=== PATIENT | female | born 2000 | race Caucasian/White ===

== ENCOUNTER 2019-01-12 05:38 | Emergency (ER) | payer OTHER ==
--- NOTE | 2019-01-12 05:56 | PDOC ---
Attending Attestation - Resident Resident Name: Justin Finnegan - ED Attending Attestation I have performed the following: The case was reviewed & discussed with the resident, I agree w/resident's findings & plan - HPI HPI: 01/12/19 20:25 see resident hpi - Physicial Exam PE: 01/12/19 20:25 see resident exam - Medical Decision Making 01/12/19 20:27 18 yo with cough and sore throat rapid strep negative nebulizer given in ed for possible reactive airway due to uri pt well appearing 01/12/19 20:28
--- NOTE | 2019-01-12 05:59 | PDOC ---
History of Present Illness - General Chief Complaint: Cold Symptoms Stated Complaint: CHEST DISCOMFORT Time Seen by Provider: 01/12/19 05:50 History Source: Patient Exam Limitations: No Limitations - History of Present Illness Initial Comments: Aliyah Morales is a 18 yo F w a hx of childhood asthma who presents to the [facility] er with a sore throat for the past 2 days associated with a cough. The patient states she also had one episode of nausea and NBNB vomitus earlier today after she brushed her teeth. Patient states her cough is a dry cough and not associated with sputum production. She states she also had some mild shortness of breath earlier today which has mainly resolved here in the ER. LMP: 12/20 Plant Controller: None PSH: breast cyst removal Social Hx: Denies smoking, drinking, or other substance usage. Allergies: NKA, NKDA Past History - Past Medical History Allergies/Adverse Reactions: Allergies Allergy/AdvReac Type Severity Reaction Status Date / Time No Known Allergies Allergy Verified 01/12/19 06:12 Home Medications: Ambulatory Orders NK [No Known Home Medication] 01/12/19 - Psycho Social/Smoking Cessation Hx Smoking History: Never smoked Hx Alcohol Use: No Substance Use Type: None Review of Systems - Review of Systems Able to Perform ROS?: Yes Comments:: CONSTITUTIONAL: Present: Chills Absent: fever, no fatigue EYES: Absent: visual changes ENT: Present: Sore throat Absent: ear pain CARDIOVASCULAR: Absent: chest pain, no palpitations RESPIRATORY: Present: Cough, SOB GI: Present: Nausea, vomiting Absent: abdominal pain, no constipation, no diarrhea GENITOURINARY: Absent: dysuria, no frequency, no hematuria MUSKULOSKELETAL: Absent: back pain, no arthralgia, no myalgia SKIN: Absent: rash NEURO: Absent: headache *Physical Exam - Physical Exam Comments: GENERAL: Well-appearing, well-nourished. No apparent distress. HEENT: Normocephalic, atraumatic. PERRL, EOM intact. CARDIOVASCULAR: Normal S1, S2. Regular rate and rhythm. PULMONARY: No evidence of respiratory distress. Lungs clear to auscultation bilaterally. No wheezing, rales or rhonchi. ABDOMEN: Soft, non-distended, non-tender. EXTREMITIES: Normal ROM in all four extremities. No gross deformities. SKIN: Warm, dry. No rash NEUROLOGICAL: No focal neurological deficits. Medical Decision Making - Medical Decision Making Medical Decision Making: Aliyah Morales is a 18 yo F w a hx of childhood asthma who presents to the [facility] er with a sore throat for the past 2 days associated with a cough. The patient states she also had one episode of nausea and NBNB vomitus earlier today after she brushed her teeth. Patient states her cough is a dry cough and not associated with sputum production. She states she also had some mild shortness of breath earlier today which has mainly resolved here in the ER. LMP: 12/20 VS: WNL DDx IBNLT: URI, strep, asthma Plan: HCG, rapid strep, analgesia and supportive care, DC HCG: Negative Strep: Negative Dispo: Home *DC/Admit/Observation/Transfer Diagnosis at time of Disposition: Cough, Sore throat - Discharge Dispostion Disposition: HOME Condition at time of disposition: Improved Decision to Admit order: No - Referrals Referrals: [facility] [Provider Group] - Patient Instructions Printed Discharge Instructions: How to Avoid a Cold or Flu, DI for Viral Upper Respiratory Infection-Child, DI for Common Cold Additional Instructions: You came into the ER with a cough and a sore throat. We believe you have a viral infection. Take motrin/tylenol as needed for comfort. Please make sure to schedule a follow up appointment with the doctor we are referring you to in the next 3 to 5 days. Come back to the ER immediately if your pain worsens or you have any other new or worsening concerns. Thank you for coming to the [facility] ER. We hope you feel better soon! Print Language: MOROCCAN - Post Discharge Activity Forms/Work/School Notes: Back to Work Discharge - Discharge Information Problems reviewed: Yes Clinical Impression/Diagnosis: Cough, Sore throat Condition: Improved Disposition: HOME - Follow up/Referral Referrals: [facility] [Provider Group] - Patient Discharge Instructions Patient Printed Discharge Instructions: How to Avoid a Cold or Flu, DI for Viral Upper Respiratory Infection-Child, DI for Common Cold Additional Instructions: You came into the ER with a cough and a sore throat. We believe you have a viral infection. Take motrin/tylenol as needed for comfort. Please make sure to schedule a follow up appointment with the doctor we are referring you to in the next 3 to 5 days. Come back to the ER immediately if your pain worsens or you have any other new or worsening concerns. Thank you for coming to the [facility] ER. We hope you feel better soon! Print Language: MOROCCAN - Post Discharge Activity Work/Back to School Note: Back to Work
[2019-01-12] MEDS ORDERED: ACETAMINOPHEN 325 MG TABLET (FP) PO ONE (06:00)
[2019-01-12] MEDS ORDERED: ALBUTEROL SO4 2.5/IPRATROPIUM 0.5 INH SOL 3 ML VIAL.NEB. NEB ONE ×2 (06:00→06:06)
[2019-01-12] MEDS ORDERED: ACETAMINOPHEN 325 MG TABLET (FP) ONE (06:06)
[2019-01-12] MEDS ORDERED: DEXAMETHASONE 0.5 MG TABLET PO ONE (06:06)
[2019-01-12] MEDS ORDERED: guaiFENesin/CODEINE 10 ML UNIT-DOSE CUPS PO ONE (06:08)
[2019-01-12] MEDS ORDERED: ONDANSETRON *ODT* 4 MG TABLET SL ONE (06:10)
[2019-01-12 06:12] VITALS: BP 126/67; PULSE 92; TEMP 98.7; BMI 29.9
[2019-01-12] MEDS ORDERED: ONDANSETRON *ODT* 4 MG TABLET ONE (06:21)
[2019-01-12] MEDS ORDERED: guaiFENesin/CODEINE 5 ML UNIT-DOSE CUPS PO ONE (06:28)
== END 2019-01-12 07:03 | disposition home or self-care (01) ==
LOC: JER 05:38
PROC: 3E0F7GC Introduction of Other Therapeutic Substance into Respiratory Tract, Via Natural or Artificial Opening (ICD-10-PCS; principal; 2019-01-12)
DX: J06.9 Acute upper respiratory infection, unspecified (principal)
CPT/HCPCS: 84703; 87070; 87077; 87880; 99281-25; J8540; Q0162

== ENCOUNTER 2019-06-20 05:03 | Emergency (ER) | payer OTHER ==
--- NOTE | 2019-06-20 05:05 | PDOC ---
History of Present Illness - General Stated Complaint: ABD PAIN 3 MONTH Time Seen by Provider: 06/20/19 05:05 Past History - Past Medical History Allergies/Adverse Reactions: Allergies Allergy/AdvReac Type Severity Reaction Status Date / Time No Known Allergies Allergy Verified 01/12/19 06:12 Home Medications: Ambulatory Orders NK [No Known Home Medication] 01/12/19 - Psycho Social/Smoking Cessation Hx Smoking History: Never smoked Hx Alcohol Use: No Drug/Substance Use Hx: No Substance Use Type: None
[2019-06-20 05:22] VITALS: BMI 28.3
--- NOTE | 2019-06-20 05:34 | PDOC ---
Attending Attestation - Resident Resident Name: Iraida Ross - ED Attending Attestation I have performed the following: I have examined & evaluated the patient, The case was reviewed & discussed with the resident, I agree w/resident's findings & plan - HPI HPI: 06/20/19 06:34 18-year-old female with past medical history of gonorrhea infection (x2 weeks ago, treated) presented to the emergency department for nausea since Thursday. Patient reported that since not Thursday she feels that her nausea has been much more intense than her usual nausea from her . She reported she did not eat all day Thursday, and then began having vomiting episodes. She reported after Thursday she has not had an episode of vomiting, but that she feels that her nausea is much more intense. She reported that earlier today she felt a sharp pain to her RLQ, intermittent, not present at the moment. She reported the pain to her epigastrium is worse than her pain in the R - Physicial Exam PE: 06/20/19 06:59 Exam is normal no CMT; pt has yeast in the vault; she has no discharge and no dysuria Pt has no abd pain and no flank pain and no fever Normal heart and lungs. - Medical Decision Making 06/24/19 22:34 Pt will be signed out to the day team; they will follow results and dispo the patient.
[2019-06-20 05:42] LABS: BASO % 0.8 % (0-2.0); HEMATOCRIT 35.2 % (32.4-45.2); HEMOGLOBIN 12.5 GM/dL (10.7-15.3); LYMPH % 27.9 % (8-40); MCH 30.7 pg (25.7-33.7); MCHC 35.6 g/dl (32.0-36.0); MEAN CELL VOLUME 86.4 fl (80-96); NEUT % 64.3 % (42.8-82.8); PLATELET COUNT 235 K/MM3 (134-434); RBC 4.08 M/mm3 (3.60-5.2); RDW 13.3 % (11.6-15.6); WHITE BLOOD COUNT 8.1 K/mm3 (4.0-10.0)
[2019-06-20] MEDS ORDERED: MAG HYDROX/AL HYDROX/SIMETH 30 ML UNIT-DOSE CUP PO ONE (05:42)
[2019-06-20] MEDS ORDERED: ONDANSETRON 4 MG/2 ML VIAL IVPUSH ONE (05:42)
[2019-06-20] MEDS ORDERED: FAMOTIDINE 20 MG/50 ML IVPB 20 MG/50 ML MG IVPB ONE ×2 (05:42→06:10)
--- NOTE | 2019-06-20 05:42 | PDOC ---
History of Present Illness - General Chief Complaint: Pain, Acute Stated Complaint: ABD PAIN 3 MONTH Time Seen by Provider: 06/20/19 05:05 History Source: Patient Exam Limitations: No Limitations - History of Present Illness Initial Comments: 18-year-old female 12 weeks with past medical history of gonorrhea infection (x2 weeks ago, treated) presented to the emergency department for nausea since Thursday. Patient reported that since not Thursday she feels that her nausea has been much more intense than her usual nausea from her . She reported she did not eat all day Thursday, and then began having vomiting episodes. She reported after Thursday she has not had an episode of vomiting, but that she feels that her nausea is much more intense. She reported that earlier today she felt a sharp pain to her RLQ, intermittent, not present at the moment. She reported the pain to her epigastrium is worse than her pain in the RLQ. ROS General: denied fever, chills, generalized weakness. HEENT: denied sore throat, rhinorrhea, ear pain. Cardiovascular: denied chest pain, palpitations, syncope, diaphoresis. Respiratory: denied shortness of breath, cough, sputum production, hemoptysis. Gastrointestinal: admitted to nausea, vomiting. denied diarrhea, constipation, blood in stool. Genitourinary: denied dysuria, increased urinary frequency, hematuria, urinary incontinence, flank pain. Back: denied back pain. Musculoskeletal: denied joint pain, muscle pain, joint swelling. Neurological: denied headache, dizziness, numbness, tingling, weakness. Integumentary: denied rash, laceration, abrasion. Hematologic/Lymphatic: denied bruising or bleeding. PE Constitutional: Well-nourished, Well-developed, appearing stated age. HEENT: head is normocephalic, atraumatic. EOMI. PERRLA. no posterior pharyngeal erythema. no tonsillar swelling or exudates bilaterally. uvula midline. no peritonsillar swelling. no jaw tenderness or misalignment. Neck: supple. Full ROM. Cardiovascular: regular heart rhythm. Normal S1 and S2. no murmurs. no pericardial friction rub. Respiratory: clear to auscultation bilaterally. no crackles, rhonchi or wheezing. no stridor. Gastrointestinal: soft, flat, nontender. keith negative. normal bowel sounds. no rebound, guarding, or masses. Extremities: peripheral pulses intact and equal. no lower extremity edema noted. Neurological: CN 2-12 grossly intact. moves all four extremities. Psych: awake, alert, oriented x3. follows commands. answers questions appropriately. Pelvic: normal external genitalia. no blood in vaginal canal. thick white cottage cheese like discharge. no CMT. no adnexal tenderness. Past History - Past Medical History Allergies/Adverse Reactions: Allergies Allergy/AdvReac Type Severity Reaction Status Date / Time No Known Allergies Allergy Verified 06/20/19 05:11 Home Medications: Ambulatory Orders Clotrimazole [Lotrimin 1% Cream -] 1 applic TP Q24H 7 Days #7 tube 06/20/19 COPD: No Other medical history: DEIES - Immunization History Immunization Up to Date: Yes - Psycho Social/Smoking Cessation Hx Smoking History: Never smoked Hx Alcohol Use: No Drug/Substance Use Hx: No Substance Use Type: None *Physical Exam - Vital Signs Last Vital Signs Temp Pulse Resp BP Pulse Ox 97.1 F L 79 20 110/49 L 100 06/20/19 05:11 06/20/19 05:11 06/20/19 05:11 06/20/19 05:11 06/20/19 05:11 ED Treatment Course - LABORATORY CBC & Chemistry Diagram: 06/20/19 05:30 06/20/19 05:30 Medical Decision Making - Medical Decision Making 18 year old female with above PMH presented to ED for epigastric pain, nausea, RLQ pain. Initial Vital Signs Temp Pulse Resp BP Pulse Ox 97.1 F L 79 20 110/49 L 100 06/20/19 05:11 06/20/19 05:11 06/20/19 05:11 06/20/19 05:11 06/20/19 05:11 Afebrile. No tachycardia. No tachypnea. Mild diastolic hypotension. No hypoxia on room air. Laboratory Last Values WBC 8.1 K/mm3 (4.0-10.0) 06/20/19 05:30 RBC 4.08 M/mm3 (3.60-5.2) 06/20/19 05:30 Hgb 12.5 GM/dL (10.7-15.3) 06/20/19 05:30 Hct 35.2 % (32.4-45.2) 06/20/19 05:30 MCV 86.4 fl (80-96) 06/20/19 05:30 MCH 30.7 pg (25.7-33.7) 06/20/19 05:30 MCHC 35.6 g/dl (32.0-36.0) 06/20/19 05:30 RDW 13.3 % (11.6-15.6) 06/20/19 05:30 Plt Count 235 K/MM3 (134-434) 06/20/19 05:30 MPV 9.0 fl (7.5-11.1) 06/20/19 05:30 Absolute Neuts (auto) 5.2 K/mm3 (1.5-8.0) 06/20/19 05:30 Neutrophils % 64.3 % (42.8-82.8) 06/20/19 05:30 Lymphocytes % 27.9 % (8-40) 06/20/19 05:30 Monocytes % 6.0 % (3.8-10.2) 06/20/19 05:30 Eosinophils % 1.0 % (0-4.5) 06/20/19 05:30 Basophils % 0.8 % (0-2.0) 06/20/19 05:30 Nucleated RBC % 0 % (0-0) 06/20/19 05:30 Sodium 137 mmol/L (136-145) 06/20/19 05:30 Potassium 4.7 mmol/L (3.5-5.1) 06/20/19 05:30 Chloride 107 mmol/L (98-107) 06/20/19 05:30 Carbon Dioxide 22 mmol/L (21-32) 06/20/19 05:30 Anion Gap 8 MMOL/L (8-16) 06/20/19 05:30 BUN 8.8 mg/dL (7-18) 06/20/19 05:30 Creatinine 0.5 mg/dL (0.55-1.3) L 06/20/19 05:30 Est GFR (CKD-EPI)AfAm 161.48 06/20/19 05:30 Est GFR (CKD-EPI)NonAf 139.32 06/20/19 05:30 Random Glucose 81 mg/dL (74-106) 06/20/19 05:30 Calcium 8.1 mg/dL (8.5-10.1) L 06/20/19 05:30 Total Bilirubin 0.5 mg/dL (0.2-1) 06/20/19 05:30 AST 46 U/L (15-37) H 06/20/19 05:30 ALT 30 U/L (13-61) 06/20/19 05:30 Alkaline Phosphatase 61 U/L (45-117) 06/20/19 05:30 Total Protein 7.0 g/dl (6.4-8.2) 06/20/19 05:30 Albumin 3.5 g/dl (3.4-5.0) 06/20/19 05:30 Lipase 91 U/L (73-393) 06/20/19 05:30 No leukocytosis. No anemia. No electrolyte abnormalities. No CHRISTIANO. Mild elevation of AST, no other transaminitis, no HTN. No thrombocytopenia. Lipase wnl. 06/20/19 06:52 Pt reported improvement of symptoms. Pt signed out to morning provider. Lotrimin sent to pharmacy for yeast infection. GC/Chlamydia pending. Pt is pending TVUS. Pending UA/UC results. Discharge - Discharge Information Problems reviewed: Yes Clinical Impression/Diagnosis: Yeast infection, Abdominal pain affecting , Nausea and vomiting during Condition: Improved Disposition: HOME - Additional Discharge Information Prescriptions: Clotrimazole [Lotrimin 1% Cream -] 1 applic TP Q24H 7 Days #7 tube - Follow up/Referral Referrals: Shiva Izquierdo MD [Staff Physician] - Darrell Fitzgerald MD [Staff Physician] - Catherine Puri MD [Staff Physician] - CallBack Reminder: GC/C Amp - Patient Discharge Instructions Patient Printed Discharge Instructions: Eating During : A Labor for Dad, Common Discomforts and Bodily Changes During , Managing Symptoms of , DI for Vaginal Yeast Infection, Clotrimazole Vaginal Additional Instructions: You were seen today for abdominal pain with nausea and vomiting. Your blood w ork, urine test, and ultrasound did not show anything life threatening. Your symptoms may be related to your . The last urine test will take several days to complete. The hospital will call you if the results are positive. You can call medical records in the next 3-4 business days as well. The number is included in this packet. A prescription for an anti-fungal cream was sent to your pharmacy. Take it as directed on the package insert. Make sure to stay well hydrated over the next several days. You can take over the counter Tylenol as needed for pain. Take as directed on the package insert. Do not exceed the recommended dosage. Follow up with your OBGYN doctor in the next 3-4 days. You will need to call to make an appointment. A copy of todays results are attached to this packet. Take it to the appointment so your doctor can review them. Go to the nearest emergency department if your condition worsens or you feel like you need additional emergency evaluation. Come back to the emergency department if your pain becomes more intense, or it if starts to stay in the lower right side of your abdomen. Print Language: OMANI - Post Discharge Activity Work/Back to School Note: Back to Work
[2019-06-20] MEDS ORDERED: SODIUM CHLORIDE 1,000 ML IV STA (06:00)
[2019-06-20] MEDS ORDERED: MAG HYDROX/AL HYDROX/SIMETH 30 ML UNIT-DOSE CUP ONE (06:09)
[2019-06-20] MEDS ORDERED: ONDANSETRON 4 MG/2 ML VIAL ONE (06:10)
[2019-06-20 06:12] LABS: ALBUMIN 3.5 g/dl (3.4-5.0); BILIRUBIN,TOTAL 0.5 mg/dL (0.2-1); BLOOD UREA NITROGEN 8.8 mg/dL (7-18); CALCIUM 8.1 mg/dL (8.5-10.1); CREATININE 0.5 mg/dL (0.55-1.3); POTASSIUM 4.7 mmol/L (3.5-5.1)
--- NOTE | 2019-06-20 06:57 | PDOC ---
*Physical Exam - Vital Signs Last Vital Signs Temp Pulse Resp BP Pulse Ox 97.6 F 79 20 110/49 L 100 06/20/19 06:34 06/20/19 05:11 06/20/19 05:11 06/20/19 05:11 06/20/19 05:11 ED Treatment Course - LABORATORY CBC & Chemistry Diagram: 06/20/19 05:30 06/20/19 05:30 - ADDITIONAL ORDERS Additional order review: Laboratory Results 06/20/19 06/20/19 05:30 05:30 Sodium 137 Potassium 4.7 Chloride 107 Carbon Dioxide 22 Anion Gap 8 BUN 8.8 Creatinine 0.5 L Est GFR (CKD-EPI)AfAm 161.48 Est GFR (CKD-EPI)NonAf 139.32 Random Glucose 81 Calcium 8.1 L Total Bilirubin 0.5 AST 46 H ALT 30 Alkaline Phosphatase 61 Total Protein 7.0 Albumin 3.5 Lipase 91 Beta HCG, Quant 616602.0 Blood Type Cancelled Antibody Screen Cancelled 06/20/19 05:30 RBC 4.08 MCV 86.4 MCHC 35.6 RDW 13.3 MPV 9.0 Neutrophils % 64.3 Lymphocytes % 27.9 Monocytes % 6.0 Eosinophils % 1.0 Basophils % 0.8 - Medications Given in the ED: ED Medications Discontinued Medications Generic Name Dose Route Start Last Admin Trade Name Irving PRN Reason Stop Dose Admin Al Hydroxide/Mg Hydroxide 30 ml 06/20/19 05:42 06/20/19 06:15 Mylanta Oral Suspension - PO 06/20/19 05:43 30 ml ONCE ONE Administration Famotidine/Sodium Chloride 20 mg in 50 mls @ 100 mls/hr 06/20/19 05:42 06/20/19 06:15 Pepcid 20 Mg Premixed Ivpb - IVPB 06/20/19 06:11 100 mls/hr ONCE ONE Administration Ondansetron HCl 4 mg 06/20/19 05:42 06/20/19 06:15 Zofran Injection IVPUSH 06/20/19 05:43 4 mg ONCE ONE Administration Medical Decision Making - Medical Decision Making Received sign out from resident Dr. Ross. In short, pt is a 18 y/o female presenting with N/V and RLQ pain. Afebrile. Vitals unremarkable for hypotension or tachycardia. Laboratory data unremarkable for significant derangement. UA unremarkable for pyuria, nitrites, or leukocyte esterase. Will f/u pending TVUS. Dispo pending. Noted ketonuria without glucosuria. Suspect mild dehydration. Ordered LR IVFB. Reviewed TVUS. Single IUP w/ normal HR. Flow to both ovaries. 20 Jun 2019 09:25 AM Pt assessed after receiving bolus. Reports pain has significantly improved. Nausea persists without further vomiting. Abdominal exam was unremarkable for acute abdominal signs - no rebound, guarding, or grimace. Pt reports she is establishing care with OB clinic in the [place]. Anticipates being able to schedule an appointment this week. Discharge - Discharge Information Problems reviewed: Yes Clinical Impression/Diagnosis: Yeast infection, Abdominal pain affecting , Nausea and vomiting during Condition: Improved Disposition: HOME - Admission No - Additional Discharge Information Prescriptions: Clotrimazole [Lotrimin 1% Cream -] 1 applic TP Q24H 7 Days #7 tube - Follow up/Referral Referrals: Darrell Fitzgerald MD [Staff Physician] - Catherine Puri MD [Staff Physician] - Shiva Izquierdo MD [Staff Physician] - CallBack Reminder: GC/C Amp - Patient Discharge Instructions Patient Printed Discharge Instructions: Eating During : A Labor for Dad, Common Discomforts and Bodily Changes During , Managing Symptoms of , DI for Vaginal Yeast Infection, Clotrimazole Vaginal Additional Instructions: You were seen today for abdominal pain with nausea and vomiting. Your blood work, urine test, and ultrasound did not show anything life threatening. Your symptoms may be related to your . The last urine test will take several days to complete. The hospital will call you if the results are positive. You can call medical records in the next 3-4 business days as well. The number is included in this packet. A prescription for an anti-fungal cream was sent to your pharmacy. Take it as di rected on the package insert. Make sure to stay well hydrated over the next several days. You can take over the counter Tylenol as needed for pain. Take as directed on the package insert. Do not exceed the recommended dosage. Follow up with your OBGYN doctor in the next 3-4 days. You will need to call to make an appointment. A copy of todays results are attached to this packet. Take it to the appointment so your doctor can review them. Go to the nearest emergency department if your condition worsens or you feel like you need additional emergency evaluation. Come back to the emergency de partment if your pain becomes more intense, or it if starts to stay in the lower right side of your abdomen. Print Language: INDONESIAN - Post Discharge Activity Work/Back to School Note: Back to Work
[2019-06-20 07:44] LABS: PH,URINE 5.5 (5.0-8.0); URINE APPEARANCE CLEAR; URINE BILIRUBIN NEGATIVE (NEGATIVE); URINE COLOR DK YELLOW; URINE GLUCOSE (UA) NEGATIVE (NEGATIVE); URINE KETONE TRACE (NEGATIVE); URINE LEUK ESTERASE NEGATIVE (NEGATIVE); URINE NITRITE NEGATIVE (NEGATIVE); URINE PROTEIN NEGATIVE (NEGATIVE)
[2019-06-20] MEDS ORDERED: LACTATED RINGERS SOLUTION 1000 ML INFUS.BAG IV ONE (08:20)
[2019-06-20 10:42] VITALS: BP 100/53; PULSE 75; TEMP 98
== END 2019-06-20 10:45 | disposition home or self-care (01) ==
LOC: JER 05:03
PROC: 3E033GC Introduction of Other Therapeutic Substance into Peripheral Vein, Percutaneous Approach (ICD-10-PCS; principal; 2019-06-20)
PROC: 3E033GC Introduction of Other Therapeutic Substance into Peripheral Vein, Percutaneous Approach (ICD-10-PCS; 2019-06-20)
DX: O26.891 Other specified pregnancy related conditions, first trimester (principal); O98.811 Other maternal infectious and parasitic diseases complicating pregnancy, first trimester; B37.3 Candidiasis of vulva and vagina; Z3A.11 11 weeks gestation of pregnancy; O21.0 Mild hyperemesis gravidarum; O20.0 Threatened abortion
CPT/HCPCS: 36415; 76817-TC; 80053; 81003; 83690; 84702; 84703; 85025; 87491; 87591; 99285-25; J7030